=== PATIENT | female | born 1990 | race Caucasian/White ===

== ENCOUNTER 2024-01-14 19:36 | Inpatient (IN) | payer BC, SELFPAY ==
[2024-01-14 19:42] VITALS: BMI 33.5
[2024-01-14 20:08] VITALS: BP 134/75
[2024-01-14 20:36] LABS: % Basophils 0.5 % (0-2); % Eosinophils 0.8 % (0-6); % Immature Granulocytes 1.1 % (0-0.5); % Monocytes 7.4 % (1.7-9.3); % Neutrophils 72.2 % (42.2-75.2); Absolute Basophils 0.1 10^3/uL (0-0.2); Absolute Eosinophils 0.1 10^3/uL (0-0.7); Absolute Immature Granulocytes 0.1 10^3/uL (0-0.05); Absolute Lymphocytes 1.7 10^3/uL (1.2-3.4); Absolute Monocytes 0.7 10^3/uL (0.1-0.6); Absolute Neutrophils 6.9 10^3/uL (1.4-6.5); Hematocrit 32.3 % (37.0-47.0); Hemoglobin 11.5 g/dL (12.0-16.0); Mean Corp Hgb Conc. 35.6 g/dL (33.0-37.0); Mean Corpuscular Hgb 33.2 pg (27.0-31.0); Mean Corpuscular Volume 93.4 fL (81.0-99.0); Mean Platelet Volume 11.6 fL (7.4-10.4); Nucleated Red Blood Cells % 0 %; Platelet Count 203 10^3/uL (130-400); Red Blood Cell Count 3.46 10^6/uL (4.20-5.40); Red Cell Dist. Width 13.4 % (11.5-14.5); White Blood Cell Count 9.6 10^3/uL (4.8-10.8)
[2024-01-14] MEDS: CYTOTEC 50 MICROGRAM VAG (20:42)
[2024-01-14] MEDS: LR 1000 IV (23:15)
[2024-01-15] MEDS: MORPHINE SULFATE 2 MG IV (03:40)
[2024-01-15] MEDS: PHENERGAN 50.5 MG IV (03:40)
[2024-01-15] MEDS: SUBLIMAZE 100 MCG EPIDURAL (04:55)
[2024-01-15] MEDS: FENTANYL/BUPIVACAINE 100 EPIDURAL (04:55)
[2024-01-15] MEDS: LR 1000 IV (04:55)
[2024-01-15] MEDS: PITOCIN 30 UNITS/NSS 500 ML IV (07:42)
[2024-01-15] MEDS: MOTRIN 600 MG PO ×2 (16:18→22:22)
[2024-01-15] MEDS: SENOKOT-S 1 TABLET PO (22:22)
[2024-01-15] MEDS: TYLENOL 650 MG PO (22:22)
[2024-01-16 05:20] LABS: Hemoglobin 11.7 g/dL (12.0-16.0)
[2024-01-16] MEDS: TYLENOL 650 MG PO ×2 (05:55→19:38)
[2024-01-16] MEDS: MOTRIN 600 MG PO ×3 (05:55→21:21)
[2024-01-16] MEDS: PRENATAL PLUS 1 TABLET PO (08:43)
[2024-01-16] MEDS: SENOKOT-S 1 TABLET PO (08:43)
[2024-01-16] MEDS: OSCAL CAL 500 PO (15:21)
[2024-01-17] MEDS: TYLENOL 650 MG PO (04:21)
[2024-01-17] MEDS: MOTRIN 600 MG PO (04:21)
[2024-01-17] MEDS: PRENATAL PLUS 1 TABLET PO (08:35)
[2024-01-17] MEDS: SENOKOT-S 1 TABLET PO (08:36)
[2024-01-17] MEDS: OSCAL CAL 500 500 MG PO (08:36)
[2024-01-19 18:41] LABS: Syphilis/T. pallidum Ab Reflex Negative (Negative)
== END 2024-01-17 10:55 | disposition home or self-care (01) | DRG 807 ==
LOC: LDRP 19:36
PROVIDERS: Obstetrics & Gynecology; ADMITTING PHYSICIAN Obstetrics & Gynecology; FAMILY PHYSICIAN Internal Medicine
PROC: 0KQM0ZZ Repair Perineum Muscle, Open Approach (ICD-10-PCS; 2024-01-15)
PROC: 3E0P7VZ Introduction of Hormone into Female Reproductive, Via Natural or Artificial Opening (ICD-10-PCS; 2024-01-15)
PROC: 10E0XZZ Delivery of Products of Conception, External Approach (ICD-10-PCS; 2024-01-15)
DX: O48.0 Post-term pregnancy (principal); Z37.0 Single live birth; O70.1 Second degree perineal laceration during delivery; Z3A.40 40 weeks gestation of pregnancy
CPT/HCPCS: 88307; 85014; 85018; 85025; 86780; 86850; 86900; 86901

== ENCOUNTER 2024-01-21 18:10 | Emergency (ER) | payer BC, SELFPAY ==
[2024-01-21 18:20] VITALS: BP 147/101
--- NOTE | 2024-01-21 21:22 | ED.GENMED ---
History of Present Illness
General
Chief Complaint: Skin Problem
Source: patient
Exam Limitations: none
Time Seen by Provider: 01/21/24 20:38
History of Present Illness
History of Present Illness:
33 year old female presents with painful swelling to the tailbone area worsening over the past 4 days. She notes no fever or chills. She was seen by her raker buffing wheel and was sent here for possible pilonidal cyst. Of note, patient had vaginal
delivery of her second child last week. She is not currently breast-feeding. No other complaints at this time
Past History
Past History
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
ED Past Surgical History: Gynecological and Tonsilectomy
Social History
Tobacco: Non-smoker
Alcohol: None
Phy Exam
Physical Exam
Physical Exam:
General: Well-appearing female no acute distress
Skin: Fluctuance erythema and tenderness noted to the midline of the buttock overlying the sacrum. This is more centered just to the left. There is a mild amount of purulent drainage.
Extremities: No cyanosis or edema
Course
Vital Signs
Initial and Last Documented VS:
Initial Vital Signs
Temp Pulse Resp BP Pulse Ox
98.3 F 75 18 147/101 100
01/21/24 18:20 01/21/24 18:20 01/21/24 18:20 01/21/24 18:20 01/21/24 18:20
Last Documented Vital Signs
Temp Pulse Resp BP Pulse Ox
98.3 F 75 18 147/101 100
01/21/24 18:20 01/21/24 18:20 01/21/24 18:20 01/21/24 18:20 01/21/24 18:20
MDM/Problems Addressed
Differential Diagnosis Includes:
Pain and swelling to the buttock area. Likely pilonidal cyst. No signs of surrounding cellulitis. Discussed treatment options with the patient. The area was cleansed with saline anesthetized 1% lidocaine with epinephrine and 11 blade scalpel was
used to drain the abscess. A large amount of purulent material was expressed from the wound. This was then copiously irrigated with saline and dressed with gauze and tape. Patient started on Bactrim. Stable for discharge
*Critical Care Note
Total Time (30-74mins, 75-104mins- exclusive of procedures): Not Applicable
ED Attending Note
-
Portions of this chart may have been created with voice recognition software.� Occasional wrong word or��sound alike� substitutions may have occurred due to the inherent limitations of voice recognition software.
Discharge Plan
Departure
Patient Disposition: Home (Routine Discharge)
Date of Disposition: 01/21/24
Time of Disposition: 21:30
Patient with high blood pressure during this ER visit?: No
Discharge Problem:
Abscess
Instructions: Pilonidal Cyst (DC)
Prescriptions:
New
sulfamethoxazole-trimethoprim [Bactrim DS] 800-160 mg tablet
1 tab PO BID Qty: 14 0RF
No Action
calcium carbonate [calcium] 500 MG tablet
500 [facility] PO DAILY
[facility]FA [ Multivitamins] 1 EACH tablet
1 ea PO DAILY
sennosides-docusate sodium 8.6-50 mg Tablet
1 tab PO DAILYPRN PRN (Reason: constipation) Qty: 0 0RF
ibuprofen 600 mg Tablet
600 mg PO Q6HPRN PRN (Reason: moderate pain/cramps) Qty: 45 0RF
acetaminophen 325 mg Tablet
650 mg PO Q4HPRN PRN (Reason: mild pain) Qty: 0 0RF
Activity Restrictions/Additional Instructions:
Use warm compress. Keep clean. Change dressing if needed. Take antibiotic as directed. Return if worse
Interventions
Interventions:
*Risk Screen - Suicide Last Done: 01/21/24 21:17
*General Assessment Last Done: 01/21/24 21:17
*Neglect/Abuse Screening Last Done: 01/21/24 21:17
Discharge Date and Time
Print Language: TAMAZIGHT
[2024-01-21] MEDS: BACTRIM DS 800 MG/160 MG 1 TABLET PO (21:40)
[2024-01-21 21:46] VITALS: BP 149/89
== END 2024-01-21 21:50 | disposition home or self-care (01) ==
LOC: EMR 18:10
PROVIDERS: EMERGENCY PHYSICIAN Emergency Medicine; FAMILY PHYSICIAN Internal Medicine
DX: O90.89 Other complications of the puerperium, not elsewhere classified (principal); L02.31 Cutaneous abscess of buttock; Z98.890 Other specified postprocedural states
CPT/HCPCS: 99283; 10060